=== PATIENT | male | born 1980 | race Caucasian/White ===

== ENCOUNTER → 2020-01-28 14:59 | Outpatient (CLI) | payer MEDICARE, MEDICAID, SELFPAY ==
--- NOTE | ~2020-01-28 | XR_ITS ---
EXAMINATION: XR lumbar spine 2-3V, XR thoracic spine 3V EXAM DATE: 01/28/2020 15:19 INDICATION: Mid to low back pain. TECHNIQUE: Lumber spine frontal, lateral, lateral L5-S1 projections for interpretation. Frontal, late ral, swimmer's projections of the thoracic spine. Comparison is made to prior examination from 015. FINDINGS: No endplate erosive change. Mild disc disease L4-5 and L5-S1. The vertebral bodies are ali gned in the AP dimension. Vertebral body heights are maintained. There are cholecystectomy clips. Sac rum, sacroiliac joints, sacral arcuate lines are intact. Mild lumbar facet arthropathy. Paraspinal so ft tissue is unremarkable. Posterior aspects of the ribs unremarkable. IMPRESSION: Mild lower lumbar spondylosis. Reviewed, dictated and finalized at location B. [employer] IMPRESSION: Mild lower lumbar spondylosis.
== END ==
PROVIDERS: PCP Family Medicine Adolescent Medicine; Visit Provider Family Medicine Adolescent Medicine
DX: M54.6 Pain in thoracic spine (principal); M47.896 Other spondylosis, lumbar region
CPT/HCPCS: 72072; 72100

== ENCOUNTER 2020-09-25 12:55 | Emergency (ER) | payer MEDICARE, MEDICAID, SELFPAY ==
[2020-09-25 13:26] VITALS: BP 131/83; PULSE 102; RESP 16; TEMP 36.8; O2SAT 100
--- NOTE | 2020-09-25 14:55 | PC.NURSE ---
Pt to ED to be evaluated after taking 5 10mg Baclofen tablets at 0530 this morning. Pt reports he took the medication to get high . Pt states he just feels drunk . Pt denies chest pain, sob, dizziness, nausea, or vomiting. Pt reports he told his mother that he took the medications and she was concerned and wanted him to be evaluated. Pt denies hx of illicit drug abuse. Pt reports the medications were prescribed to him. However, he presents with the medications in a clear ziplock bag. Pt A&O x4. Respirations non-labored. No distress noted. Denies SI/HI.
--- NOTE | 2020-09-25 14:56 | ED.GENADULT ---
HPI - General Adult General Chief complaint: Unspecified Stated complaint: took 5 muscle relaxers Time Seen by Provider: 09/25/20 14:55 Source: patient Mode of arrival: ambulatory Limitations: no limitations History of Present Illness HPI narrative: The patient is a 40-year-old male with a history of alcohol abuse, currently 4 years sober, alcoholic pancreatitis status post cholecystectomy, anxiety, who presents for evaluation of ingestion of baclofen. Patient reports that he took 5 tablets of 10 mg oral baclofen at 5:30 AM this morning in an effort to get high. Patient has been doing this daily for 5 days. He reports no nausea or vomiting. He denies any shortness of breath or muscle cramps. He does report intermittent tremors. Patient reports feeling some general fatigue. Denies any focal weakness or numbness. Denies palpitations, lightheadedness or dizziness. Patient denies suicidal or homicidal ideation. States that he has no intent to end his life. He denies any auditory or visual hallucinations. Patient states he was prescribed a medication by his primary care physician for chronic back pain. States that he just felt like getting high and there was no other intent to it other then that. Patient states his mother wanted him to get checked out. Related Data Allergies Allergy/AdvReac Type Severity Reaction Status Date / Time vargas Allergy Severe Anaphylactic Verified 09/25/20 14:58 Shock ketorolac Allergy Mild hives Verified 09/25/20 14:58 pantoprazole Allergy Mild HIVES Verified 09/25/20 14:58 diphenhydramine Allergy Unknown Hives Verified 09/25/20 14:58 Review of Systems Review of Systems: CONSTITUTIONAL: Denies fever, chills, or sweats. EYES: Denies visual changes, redness, or discharge. ENT: Denies rhinorrhea, congestion, sore throat, or otalgia. CARDIOVASCULAR: Denies chest pain, palpitations, or edema. RESPIRATORY: Denies cough or dyspnea. GASTROINTESTINAL: Denies abdominal pain, nausea, vomiting, or diarrhea. GENITOURINARY: Denies dysuria or hematuria. SKIN: Denies rash or itching. MUSCULOSKELETAL: Denies back pain, joint pain, or myalgia. NEUROLOGIC: Denies headache, numbness, or weakness. Pt is ambulatory. [facility] Past Medical History Medical History (Updated 09/25/20 @ 16:00 by Meche Hodgson MD) Chronic cholecystitis without calculus Encounter for surgical aftercare following surgery on the digestive system Family History Family History Father Hypertension Other Cerebrovascular accident Social History Social History Smoking status: Current every day smoker Alcohol intake: never Exam Narrative: GENERAL: Awake, alert, conversant HEAD: Normocephalic, atraumatic. EYES: PERRLA and EOMI. ENT: Nares clear, no rhinorrhea or epistaxis. Mucous membranes moist. NECK: Supple. CHEST: No respiratory distress, breathing even and non labored HEART: Regular rate, sinus rhythm ABDOMEN:Non distended, non tender EXTREMITIES: Normal range of motion. No edema. SKIN: Warm, dry, no rash. NEURO:No focal deficits. Alert and oriented x3. Patient is ambulatory with a narrow base, steady gait. Course Vital Signs Vital signs: Vital Signs Temperature 36.8 C 09/25/20 13:26 Pulse Rate 102 H 09/25/20 13:26 Respiratory Rate 16 09/25/20 13:26 Blood Pressure 131/83 09/25/20 13:26 Pulse Oximetry 100 09/25/20 13:26 Temperature 36.8 C 09/25/20 13:26 Pulse Rate 102 H 09/25/20 13:26 Respiratory Rate 16 09/25/20 13:26 Blood Pressure 131/83 09/25/20 13:26 Pulse Oximetry 100 09/25/20 13:26 Medical Decision Making MDM Narrative Medical decision making narrative: Patient presented for evaluation of intentional baclofen ingestion in an effort to get high. No suicidal ideation. Patient is ambulatory with a normal neurological exam. No weakness or significant sedation
--- NOTE | 2020-09-25 15:39 | ECG_ITS ---
Measurements Intervals [place] Rate: 76 P: 60 CO: 139 QRS: 21 QRSD: 100 T: 30 QT: 370 QTc: 417 Interpretive Statements SINUS RHYTHM WITH SINUS ARRHYTHMIA INCOMPLETE RIGHT BUNDLE BRANCH BLOCK BORDERLINE T WAVE ABNORMALITY- INFERIOR LEADS BORDERLINE ECG Electronically Signed On 09-25-2020 19:55:43 CDT by [place] Walker D.O.
[2020-09-25 16:34] VITALS: BP 127/88; PULSE 86; RESP 15; O2SAT 97
== END 2020-09-25 16:37 | disposition home or self-care (01) ==
PROVIDERS: Emergency Provider Emergency Medicine; PCP Family Medicine Adolescent Medicine
DX: T42.8X1A Poisoning by antiparkinsonism drugs and other central muscle-tone depressants, accidental (unintentional), initial encounter (principal); F19.90 Other psychoactive substance use, unspecified, uncomplicated; F17.200 Nicotine dependence, unspecified, uncomplicated; I45.10 Unspecified right bundle-branch block; R94.31 Abnormal electrocardiogram [ECG] [EKG]
CPT/HCPCS: 93005; 99283